=== PATIENT | female | born 1970 | race Caucasian/White ===

== ENCOUNTER 2017-10-18 18:32 | Emergency (ER) | payer OTHER ==
[2017-10-18] MEDS ORDERED: Ondansetron ODT 4 MG TAB ONE (19:17)
[2017-10-18 19:19] LABS: #Basophils 0.1 thou/uL (0.0-0.2); #Eosinphils 0.1 thou/uL (0.0-0.7); #Monocytes 0.5 thou/uL (0.11-0.59); #Neutrophils 4.9 thou/uL (1.40-6.50); %Basophils 0.7 % (0.0-1.0); %Monocytes 6.2 % (0.0-10.0); Mean Corpuscular HGB CONC 34.8 g/dL (32.0-36.0); Mean Corpuscular Hemoglobin 27.2 pg (27.0-31.0); Mean Platelet Volume 8.8 fL (7.4-10.4); Platelet Count 174 thou/uL (130-400); RBC Distribution Width 13.7 % (11.5-14.5); White Blood Cell (WBC) Count 7.5 thou/uL (4.8-10.8)
[2017-10-18 19:38] LABS: ALT (SGPT) 27 U/L (8-55); AST (SGOT) 30 U/L (5-34); Albumin 4.2 g/dL (3.5-5.0); Alkaline Phosphatase 151 U/L (40-150); Anion Gap 15 mmol/L (10-20); BUN (Urea Nitrogen) 13 mg/dL (7.0-18.7); Bilirubin, Total 1.5 mg/dL (0.2-1.2); Calc. Creatinine Clearance 0 mL/min (70-130); Calcium 9.4 mg/dL (7.8-10.44); Carbon Dioxide 24 mmol/L (22-29); Chloride 102 mmol/L (98-107); Estimated GFR-MDRD 82; Globulin 2.8 g/dL (2.4-3.5); Glucose 98 mg/dL (70-105); Lipase 24 U/L (8-78); Potassium 3.8 mmol/L (3.5-5.1); Sodium 137 mmol/L (136-145)
== END 2017-10-18 20:58 | disposition home or self-care (01) ==
LOC: SCSER 18:32
DX: R11.2 Nausea with vomiting, unspecified (principal); R19.7 Diarrhea, unspecified; K21.9 Gastro-esophageal reflux disease without esophagitis; I10 Essential (primary) hypertension
CPT/HCPCS: 80053; 83690; 85025; 96360; Q0162

== ENCOUNTER 2018-10-29 09:22 | Outpatient (CLI) | payer OTHER ==
--- NOTE | 2018-10-29 11:07 | PRG ---
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 The patient was last seen in the wound center on 11/23/2015 for a plantar ulceration of the left forefoot. The patient states that she attended a [employer] in [place], [place] and when she took off her boots, she noticed that her sock over the left foot was saturated with blood. She states that she treated the wound of the left plantar forefoot on her own with a silver dressing moistened with normal saline followed by gauze. The patient states that the wound became infected and she was seen by Dr. Flavio Eldridge. She states that she was placed on a course of p.o. antibiotics for 1 week. She states that she was also instructed to begin dressing changes of Silvadene cream. At this time, the patient was also placed into a postop shoe. The patient states that because she was unable to utilize an offloading boot, she took 10 days off from work. Over this period of time, she continued to treat the wound with Silvadene in addition to warm soaks. She states that on the October 22, she had only 1 small wound of the plantar forefoot. She states; however, that after being back at work, the wound has worsened in its appearance. The patient states that her medical leave is over. PAST MEDICAL HISTORY: 1. Gastroesophageal reflux disease. 2. Irritable bowel syndrome. 3. Hypertension. PAST SURGICAL HISTORY: 1. Appendectomy. 2. Hysterectomy. 3. Laparoscopy for endometriosis. 4. Laminectomy in October of 2008. 5. . 6. D and C. 7. Right fifth toe arthroplasty. 8. Right shoulder surgery. MEDICATIONS: 1. Estradiol. 2. Zanaflex. 3. Pantoprazole. 4. Pravastatin. 5. Cymbalta. 6. Enalapril. 7. Gabapentin p.r.n. 8. Ibuprofen p.r.n. PHYSICAL EXAMINATION: VITAL SIGNS: Temperature 98.1, pulse 94, respirations 18, and blood pressure 93/67. EXTREMITIES: A plantar ulceration of the left forefoot is present, which measures approximately 0.7 x 0.5 cm. Granulation tissue is present within the wound margins. No purulent drainage is associated with the wound. No erythema of the skin surrounding the wound is present. No maceration of the skin of the periwound is noted. A dorsalis pedis pulse and posterior tibial pulse are both palpable on the left. No significant edema of the left foot is present on exam today. ASSESSMENT AND PLAN: 1. Left plantar forefoot ulceration. Dressing changes of SilvaSorb gel sheet will be initiated today. These dressing changes are to be performed on a daily basis after cleansing and irrigation. The patient states that she will continue to perform her own dressing changes. No antibiotics will be prescribed today based upon the appearance of the wound. I will see Ms. Alcaraz again in 1 week. 2. Gastroesophageal reflux disease. 3. Irritable bowel syndrome. 4. Hypertension. Job ID: [id number]
[2018-10-29] MEDS ORDERED: Sodium Chloride 0.9% 15 ML NEB ONE (19:09)
== END 2018-10-29 09:23 | disposition home or self-care (01) ==
LOC: WCC 09:22
PROVIDERS: ATTEND Family Medicine
DX: L97.529 Non-pressure chronic ulcer of other part of left foot with unspecified severity (principal); K21.9 Gastro-esophageal reflux disease without esophagitis; K58.9 Irritable bowel syndrome, unspecified; I10 Essential (primary) hypertension
CPT/HCPCS: 97602; A4218

== ENCOUNTER 2018-11-05 13:03 | Outpatient (CLI) | payer OTHER ==
--- NOTE | 2018-11-05 13:06 | PRG ---
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 At the time of the patient's visit on 10/29/2018, Ms. Alcaraz stated that she attended a [employer] in [place], [place] and when she took off her boot, she noticed that her sock over the left foot was saturated with blood. She stated that she treated the wound of the left plantar forefoot on her own with a silver dressing moistened with normal saline followed by gauze. The patient stated that the wound became infected and she was seen by Dr. Flavio Eldridge. She stated that she was placed on a course of p.o. antibiotics for 1 week. She stated that she was also instructed to begin dressing changes of Silvadene cream. At this time, the patient was also placed into a postop shoe. The patient stated that because she was unable to utilize an offloading boot, she took 10 days off from work. Over this period of time, she continued to treat the wound with Silvadene in addition to warm soaks. She stated that on 10/22/2018, she had only one small wound of the plantar forefoot. She stated, however, that after being back at work, the wound had worsened in its appearance. After being seen in the Wound Center, the patient was placed on dressing changes of SilvaSorb gel sheet on a daily basis after cleansing and irrigation. The patient has been performing her own dressing changes. PHYSICAL EXAMINATION: VITAL SIGNS: Temperature 97.9, pulse 97, respirations 18, blood pressure 122/78. EXTREMITIES: A plantar ulceration of the left forefoot is still present, which measures approximately 0.4 x 0.4 cm. The dimensions of the wound at the time of the patient's last visit were approximately 0.7 x 0.5 cm. Granulation tissue is present within the wound margins. No purulent drainage is associated with the wound. No erythema of the skin surrounding the wound is present. No maceration of the skin of the periwound is noted. No significant edema of the left foot is present on exam today. ASSESSMENT AND PLAN: 1. Left plantar forefoot ulceration. Dressing changes of SilvaSorb gel sheet will be continued on a daily basis after cleansing and irrigation. The patient states she will continue to perform her own dressing changes. The patient has been reassured that the wound appears to be healing without complications or any signs of infection. Ms. Alcaraz will be discharged from clinic today with followup on a p.r.n. basis. The patient understands and is in agreement with the preceding treatment plan. 2. Gastroesophageal reflux disease. 3. Irritable bowel syndrome. 4. Hypertension. Job ID: [id number]
[2018-11-05] MEDS ORDERED: Sodium Chloride 0.9% 15 ML NEB ONE (18:00)
== END 2018-11-05 13:04 | disposition home or self-care (01) ==
LOC: WCC 13:03
PROVIDERS: ATTEND Family Medicine
DX: L97.529 Non-pressure chronic ulcer of other part of left foot with unspecified severity (principal); K21.9 Gastro-esophageal reflux disease without esophagitis; K58.9 Irritable bowel syndrome, unspecified; I10 Essential (primary) hypertension
CPT/HCPCS: 97602; A4218

== ENCOUNTER 2019-08-01 16:34 | Outpatient (CLI) | payer OTHER ==
--- NOTE | 2019-08-01 17:48 | RAD ---
RIGHT FOOT: 08/01/19 Three views. HISTORY: Skin infection and foot infection. Comparison made to 05/11/14 exam. Enthesophytes from the posterior calcaneus. Tarsals otherwise appear unremarkable. The metatarsals un remarkable. MTP joins unremarkable. Degenerative change at the IP joint of the great toe. There has been significant change involving the proximal phalanx of the fifth toe when compared to e prior study. There has been erosion or excision of the distal aspect of this proximal phalanx when compared to 2014. The margins appear smooth suggesting possible excision. Recommend clinical correlat ion. No other evidence of destruction or erosive change. IMPRESSION: There has been erosion or excision of the distal aspect of the proximal phalanx of the fifth toe when compared to 2014. Margins at this site are smooth suggesting excision. Recommend clinical correlatio n. There are degenerative changes at the IP joint of the great toe; however, no erosive or destructive c hange. POS: [facility]
== END 2019-08-01 16:35 | disposition home or self-care (01) ==
LOC: SCSRAD 16:34
PROVIDERS: ATTEND Family Medicine
DX: L97.512 Non-pressure chronic ulcer of other part of right foot with fat layer exposed (principal); L08.9 Local infection of the skin and subcutaneous tissue, unspecified; M19.071 Primary osteoarthritis, right ankle and foot

== ENCOUNTER 2019-08-20 11:42 | Outpatient (CLI) | payer OTHER ==
[2019-08-20] MEDS ORDERED: Magnevist 469MG/ML 20 ML VIAL ONE (12:57)
--- NOTE | 2019-08-20 15:55 | MRI ---
RIGHT FOOT MRI WITH AND WITHOUT IV CONTRAST: HISTORY: Infection, ulcer. FINDINGS: A skin marker is placed on the plantar aspect of the foot at the proximal level of the 1st metatarsop halangeal joint. There is some dorsal superficial subcutaneous nonspecific fat stranding which certa inly could represent edema and/or cellulitis. There is noted to be some plantar angulation of the di stal phalanx of the great toe relative to the proximal phalanx, but no acute abnormal marrow signal. The 1st metatarsophalangeal joint region appears unremarkable with some mild degenerative and osteoa rthrosis change. No evidence for osteomyelitis. No evidence for ligamentous or tendinous injury. N o evidence for a drainable abscess. There is some fatty change and muscle volume loss in some of the intrinsic muscles of the foot, nonspecific. IMPRESSION: No evidence for osteomyelitis. No evidence for drainable abscess. Dorsal soft tissue superficial gagnon bcutaneous swelling, nonspecific. POS: [facility]
== END 2019-08-20 11:43 | disposition home or self-care (01) ==
LOC: MRI 11:42
PROVIDERS: ATTEND Family Medicine
DX: L08.9 Local infection of the skin and subcutaneous tissue, unspecified (principal); M79.89 Other specified soft tissue disorders
CPT/HCPCS: A9579

== ENCOUNTER 2020-04-27 18:00 | Outpatient (CLI) | payer OTHER | END 2020-04-27 18:01 | disposition home or self-care (01) | LOC: SLEEPLAB 18:00 | PROVIDERS: ATTEND Family Medicine | DX: G47.33 Obstructive sleep apnea (adult) (pediatric) (principal); R53.83 Other fatigue; R06.83 Snoring; I10 Essential (primary) hypertension; G47.00 Insomnia, unspecified; E66.9 Obesity, unspecified; Z68.33 Body mass index [BMI] 33.0-33.9, adult | CPT/HCPCS: 95806 ==

== ENCOUNTER 2020-06-15 12:07 | Outpatient (CLI) | payer OTHER ==
[2020-06-16 12:26] LABS: SARS-CoV-2 MS2 Positive; SARS-CoV-2 N Gene Negative; SARS-CoV-2 S Gene Negative; SARS-CoV-2 by NAA Not Detected (NotDetected); SARS-CoV-2 orf1ab Negative
== END 2020-06-15 12:08 | disposition home or self-care (01) ==
LOC: LABBT 12:07
PROVIDERS: ATTEND Internal Medicine Gastroenterology
DX: Z01.812 Encounter for preprocedural laboratory examination (principal); Z20.828 Contact with and (suspected) exposure to other viral communicable diseases
CPT/HCPCS: 87635; U0003

== ENCOUNTER 2020-06-18 08:13 | Day surgery (SDC) | payer OTHER ==
[2020-06-17 12:02] VITALS: BMI 31.9
[2020-06-18] MEDS ORDERED: PROPOFOL 200 MG/20 ML VIAL ONE (10:35)
[2020-06-18] MEDS ORDERED: Lidocaine 1% PF 5 ML VIAL ONE (10:35)
--- NOTE | 2020-06-18 11:03 | OP ---
DATE OF PROCEDURE: 06/18/2020 PROCEDURE PERFORMED: Colonoscopy with snare polypectomy. PREPROCEDURE DIAGNOSES: 1. Colon screening. 2. Mild anemia. POSTPROCEDURE DIAGNOSES: 1. Exam to cecum; good bowel preparation. 2. Mildly redundant transverse colon. 3. 4 mm sessile polyp in the ascending colon, removed by cold snare technique. 4. Two diminutive sessile polyps, each 3 to 4 mm, in the mid transverse colon, removed by cold snare technique. 5. Three diminutive sessile polyps in the descending colon, 3 to 4 mm in diameter, removed by cold snare technique. 6. 2 to 3 mm sessile polyp in the rectum, removed by cold snare technique. 7. Small internal hemorrhoids. 8. Otherwise normal colonoscopy. PROCEDURE IN DETAIL: Written informed consent was obtained. Upon completion of the EGD, the patient was repositioned for the colonoscopy. Total intravenous anesthesia was administered by Dr. Giovanni Carvajal. A digital rectal exam was performed that was unremarkable. A Pentax video colonoscope was inserted through the anal canal and advanced under direct visualization to the cecum. Position in the cecum was verified by clear identification of the appendiceal orifice and the ileocecal valve. The quality of the bowel preparation was good. Each colon segment was examined carefully as the colonoscope was slowly withdrawn from the cecum. Vascular pattern and haustral folds appeared normal. In the mid ascending colon, a diminutive sessile polyp was identified and removed by cold snare technique. In the mid transverse colon, 2 small sessile polyps were identified and removed by cold snare technique. In the descending colon, 3 small sessile polyps with measurements as above were removed by cold snare technique. The last polyp was identified in the rectum, and was also removed by cold snare technique. All of the polyp tissue was retrieved for histology. In the rectum, retroflexed view demonstrated small internal hemorrhoids that were not actively bleeding. The exam was otherwise normal. The colon was decompressed as the colonoscope was completely removed from the patient. She was transferred to the Day Stay surgery area for postprocedure monitoring. There were no immediate complications. RECOMMENDATIONS: 1. Await pathology results. 2. Ask the patient to call me in 1 week for pathology results. 3. Would recommend repeating a colonoscopy in 3 years. 4. Resume previous diet and medications. 5. Avoid aspirin or aspirin-like medications for the next 10 days. Job ID: [id number]
--- NOTE | 2020-06-18 11:11 | OP ---
DATE OF PROCEDURE: 06/18/2020 TITLE OF PROCEDURE: EGD with biopsy. PREPROCEDURE DIAGNOSES: 1. Worsening reflux despite therapy. 2. Mild anemia. POSTPROCEDURE DIAGNOSES: 1. Exam to second portion of duodenum. 2. Small hiatal hernia, less than 1 cm in length. 3. No erosive esophagitis or esophageal ulcer seen. 4. Normal stomach. 5. Normal-appearing duodenum, biopsies obtained for histology. DESCRIPTION OF PROCEDURE: Written informed consent was obtained. The patient was brought to the endoscopy suite. Total intravenous anesthesia was administered by Dr.Jarrett Carvajal. The patient was placed in the left lateral decubitus position. A bite block was inserted into the mouth. A Pentax video diagnostic gastroscope was introduced into the oral cavity and the esophagus was carefully intubated. The gastroscope was advanced under direct visualization to the 2nd portion of the duodenum. Endoscopic findings revealed grossly normal esophageal motility with a small less than 1 cm hiatal hernia at the distal end. There was no evidence of erosive esophagitis or ulcers. Mild erythema was noted along one fold of the distal esophagus and biopsies were obtained at 37 cm for histology. The stomach was then entered and carefully examined. This included a retroflexed view of the cardia and fundus. There were no abnormalities seen in the stomach. The duodenum from the bulb to the 2nd portion was then inspected and appeared grossly normal. No vascular ectasias were identified. Random biopsies were obtained in the duodenum for histology. The stomach was decompressed as the endoscope was completely removed from the patient. She was repositioned for the colonoscopy. RECOMMENDATIONS: 1. Await pathology results. 2. Ask the patient to call me in 1 week for pathology results. 3. We will discuss possible therapeutic change of her PPI therapy from pantoprazole to esomeprazole or lansoprazole. 4. Follow up in GI clinic in 6 to 8 weeks. Job ID: [id number]
== END 2020-06-18 11:15 | disposition home or self-care (01) ==
LOC: SDC 08:13
PROVIDERS: ATTEND Internal Medicine Gastroenterology
PROC: 0DBM8ZZ Excision of Descending Colon, Via Natural or Artificial Opening Endoscopic (ICD-10-PCS; principal; 2020-06-18)
PROC: 0DB98ZX Excision of Duodenum, Via Natural or Artificial Opening Endoscopic, Diagnostic (ICD-10-PCS; principal; 2020-06-18)
PROC: 0DB38ZX Excision of Lower Esophagus, Via Natural or Artificial Opening Endoscopic, Diagnostic (ICD-10-PCS; principal; 2020-06-18)
PROC: 0DBK8ZZ Excision of Ascending Colon, Via Natural or Artificial Opening Endoscopic (ICD-10-PCS; principal; 2020-06-18)
PROC: 0DBL8ZZ Excision of Transverse Colon, Via Natural or Artificial Opening Endoscopic (ICD-10-PCS; principal; 2020-06-18)
PROC: 0DBP8ZZ Excision of Rectum, Via Natural or Artificial Opening Endoscopic (ICD-10-PCS; principal; 2020-06-18)
DX: Z12.11 Encounter for screening for malignant neoplasm of colon (principal); D12.2 Benign neoplasm of ascending colon; D12.3 Benign neoplasm of transverse colon; D12.4 Benign neoplasm of descending colon; K62.1 Rectal polyp; K64.8 Other hemorrhoids; D64.9 Anemia, unspecified; Q43.8 Other specified congenital malformations of intestine; K21.9 Gastro-esophageal reflux disease without esophagitis; K44.9 Diaphragmatic hernia without obstruction or gangrene; F41.9 Anxiety disorder, unspecified; F32.9 Major depressive disorder, single episode, unspecified; M19.90 Unspecified osteoarthritis, unspecified site; I10 Essential (primary) hypertension; E78.00 Pure hypercholesterolemia, unspecified; G47.30 Sleep apnea, unspecified; Z79.899 Other long term (current) drug therapy; Z88.8 Allergy status to other drugs, medicaments and biological substances
CPT/HCPCS: 88305; J2704

== ENCOUNTER 2020-07-15 07:45 | Outpatient (CLI) | payer OTHER ==
--- NOTE | 2020-07-15 08:54 | RAD ---
XR Lumbar Spine 2 Or 3 View History: Low back pain Comparison: None. Findings: 5 nonrib-bearing lumbar type vertebra. Posterior spinal fusion hardware with transpedicular screws and interconnecting rods at L5/S1 discectomy change. No periarticular lucency. No acute fracture or malalignment. Asymmetric right facet joint narrowing with small erosions. Phleboliths in the pelvis. Low-grade L2/L3 degenerative disc space height loss with small disc osteophyte complex. Impression: Low-grade degenerative changes. Intact fusion hardware lumbosacral junction.
--- NOTE | 2020-07-15 09:13 | RAD ---
XR Sacroiliac Joints >=3 View History: Low back pain Comparison: None. Findings: Subtle cortical lucency the lateral aspect right sacrum at S1. Asymmetric right SI joint er osions. Posterior spinal fusion hardware with transpedicular screws and interconnecting rods and discectomy c hange at L5/S1. Numerous phleboliths in the pelvis. Impression: Abnormal cortical lucency of the right sacrum may reflect a healing fracture less likely septic arthritis from the right SI joint. MRI recommended if clinically warranted.
== END 2020-07-15 07:46 | disposition home or self-care (01) ==
LOC: SCSRAD 07:45
PROVIDERS: ATTEND Internal Medicine Rheumatology
DX: M54.5 Low back pain (principal); M46.1 Sacroiliitis, not elsewhere classified; M47.816 Spondylosis without myelopathy or radiculopathy, lumbar region; R93.7 Abnormal findings on diagnostic imaging of other parts of musculoskeletal system; Z98.1 Arthrodesis status
CPT/HCPCS: 72100; 72202

== ENCOUNTER 2020-07-16 14:08 | Outpatient (CLI) | payer OTHER ==
--- NOTE | 2020-07-16 15:02 | RAD ---
SI JOINT THREE VIEW: 07/16/20 HISTORY: Sacroiliitis. COMPARISON: Radiograph prior day. FINDINGS: The resolution on today's examination is less clear than the prior exam. The right sided cortical breakthrough is not as well appreciated. IMPRESSION: Decreased clarity and resolution of today's exam relative to the prior exam partially due to increase d field of view on today's images. The right sided sacral cortical lucency is not as well appreciate d. POS: HOME
== END 2020-07-16 14:09 | disposition home or self-care (01) ==
LOC: RAD 14:08
PROVIDERS: ATTEND Internal Medicine Rheumatology
DX: M46.1 Sacroiliitis, not elsewhere classified (principal)
CPT/HCPCS: 72202

== ENCOUNTER 2020-07-29 15:23 | Outpatient (CLI) | payer OTHER ==
[~2020-07-29 15:23] MED LIST: Magnevist 469MG/ML 20 ML VIAL ONE
--- NOTE | 2020-07-30 08:42 | MRI ---
EXAM: MRI Pelvis W WO Con DATE: 07/29/2020 3:50 PM INDICATION: Suspicion for a right sacral fracture versus sacroiliitis on the right on the comparison radiograph from [facility] [place] dated July 15, 2020. Patient also has a history of trauma where she fell out of bed and is now having sacral back pain. COMPARISON: Right sacroiliac radiograph dated July 15, 2020 and is SI joint evaluation dated 2020 FINDING: Multiplanar multisequence MR images were obtained of the sacroiliac joints with and without contrast utilizing 18 cc of MultiHance. On the fluid sensitive sequences, there is no evidence of SI joint effusion or acute fracture. There is susceptibility artifact from bilateral pedicular screws at L5-S1 posterior interbody fusion. No free fluid is identified within the pelvis. The reproductive structures appear to be surgically absen t. The bladder is partially decompressed. No enlarged lymph nodes are evident. In regards to the SI joints, there are some mild marginal osteophytes indicative of mild degenerative changes. No overt pe riarticular erosions are evident. The visualized musculature of the gluteal region reveals no definite signal abnormality to suggest muscular contusion or muscular strain. IMPRESSION: 1. The abnormalities seen involving the right SI joint on the comparison radiograph dated July 15, 2020 from [facility] in [place], were likely artifactual. There is mild degenerative change of both SI joints. No visible sacral fracture or signal abnormaliti es suggesting sacroiliitis is evident. 2. Post operative change consistent with a L5-S1 posterior interbody fusion.
== END 2020-07-29 15:24 | disposition home or self-care (01) ==
LOC: BICMRI 15:23
PROVIDERS: ATTEND Internal Medicine Rheumatology
DX: M54.5 Low back pain (principal); M46.1 Sacroiliitis, not elsewhere classified; R93.89 Abnormal findings on diagnostic imaging of other specified body structures; M47.818 Spondylosis without myelopathy or radiculopathy, sacral and sacrococcygeal region; Z98.890 Other specified postprocedural states
CPT/HCPCS: 72197; 82565; A9579

== ENCOUNTER 2020-09-02 10:02 | Outpatient (CLI) | payer OTHER ==
--- NOTE | 2020-09-02 10:55 | RAD ---
RIGHT FOOT 3 VIEWS: Date: 09/02/2020 HISTORY: Follow-up from injury. History of fifth metatarsal ulceration. COMPARISON: 08/01/2019 exam. FINDINGS: Changes of the foot are stable as compared to the prior exam. There has been what appears to be a par tial resection of the distal aspect of the proximal phalanx of the little toe. I do not see any signs of osteomyelitis. Mild arthritic changes of the first metatarsophalangeal joint are seen. Prominent calcaneal spur at the Achilles tendon insertion. IMPRESSION: Stable exam. POS: [facility]
[2020-09-02 14:57] LABS: #Basophils 0.1 thou/uL (0.0-0.2); #Eosinphils 0.1 thou/uL (0.0-0.7); #Lymphocytes 3.7 thou/uL (1.20-3.40); #Monocytes 0.7 thou/uL (0.11-0.59); #Neutrophils 8.2 thou/uL (1.40-6.50); %Basophils 0.5 % (0.0-1.0); %Eosinophils 0.9 % (0.0-10.0); %Lymphocytes 28.8 % (21.0-51.0); %Monocytes 5.6 % (0.0-10.0); %Neutrophils 64.1 % (42.0-75.0); Hemoglobin 11.9 g/dL (12.0-16.0); Mean Corpuscular HGB CONC 33.5 g/dL (32.0-36.0); Mean Corpuscular Hemoglobin 27.8 pg (27.0-31.0); Mean Platelet Volume 8.8 fL (7.4-10.4); Platelet Count 211 thou/uL (130-400); RBC Distribution Width 15.3 % (11.5-14.5); Red Blood Cell (RBC) Count 4.29 mill/uL (4.20-5.40); White Blood Cell (WBC) Count 12.7 thou/uL (4.8-10.8)
[2020-09-02 15:40] LABS: Bilirubin Negative (Negative); Blood, Urine Negative (Negative); Glucose, Urine (Dipstick) Negative (Negative); Ketone, Urine Negative (Negative); Leukocyte Negative (Negative); Nitrite Negative (Negative); Protein, Urine (Dipstick) Negative (Neg-Trace); Urobilinogen 0.2 mg/dL (Less than 2)
[2020-09-02 15:44] LABS: Clarity Clear (Clear)
[2020-09-02 15:45] LABS: Specific Gravity, Urine 1.024 (1.002-1.036)
[2020-09-02 15:46] LABS: Bacteria/HPF None Seen HPF (None Seen); RBC/HPF None Seen HPF (0-3); Squamous Epithelial 0-3 HPF (0-3); WBC/HPF None Seen HPF (0-3)
[2020-09-02 17:43] LABS: ALT (SGPT) 19 U/L (8-55); AST (SGOT) 17 U/L (5-34); Albumin 4.3 g/dL (3.5-5.0); Alkaline Phosphatase 189 U/L (40-110); Anion Gap 14 mmol/L (10-20); BUN (Urea Nitrogen) 19 mg/dL (9.8-20.1); Bilirubin, Total 0.6 mg/dL (0.2-1.2); CRP (Inflammatory) 6.41 mg/dL (= or < 0.5); Calc. Creatinine Clearance 0 mL/min (70-130); Calcium 9.3 mg/dL (7.8-10.44); Carbon Dioxide 28 mmol/L (22-29); Cardiac Risk 3.9 (Less than 4.5); Chloride 101 mmol/L (98-107); Cholesterol 157 mg/dl (< 200 Desired); Globulin 2.5 g/dL (2.4-3.5); Glucose 117 mg/dL (70-105); HDL Cholesterol 40 mg/dL (>60 Neg Risk); LDL Cholesterol, Calculated 80 mg/dL; Potassium 4.3 mmol/L (3.5-5.1); Protein, Total 6.8 g/dL (6.0-8.3); Sodium 139 mmol/L (136-145); Triglycerides 186 mg/dL (Less than 150)
[2020-09-02 17:54] LABS: Free T4 (Free Thyroxine) 1.01 ng/dL (0.70-1.48); Thyroid Stimulating Hormone 2.8774 uIU/mL (0.35-4.94)
[2020-09-02 17:55] LABS: Vitamin D, 25 Hydroxy 43.8 ng/ml (> 30.0)
[2020-09-04 15:56] LABS: ANA Symphony (Qualitative) Negative (Negative); ANA Symphony (Quantitative) 0.2 Ratio (< 0.7 Negative); dsDNA IgG Antibody Less than 0.5 IU/mL (<10 Negative)
== END 2020-09-02 10:03 | disposition home or self-care (01) ==
LOC: SCSRAD 10:02
PROVIDERS: ATTEND Family Medicine
DX: Z00.00 Encounter for general adult medical examination without abnormal findings (principal); T24.331A Burn of third degree of right lower leg, initial encounter; E55.9 Vitamin D deficiency, unspecified; E03.9 Hypothyroidism, unspecified; L65.9 Nonscarring hair loss, unspecified
CPT/HCPCS: 36415; 80053; 80061; 81001; 82306; 84439; 84443; 84481; 85025; 85652; 86038; 86140; 86225

== ENCOUNTER 2020-09-16 11:13 | Inpatient (IN) | payer OTHER ==
[2020-09-16 12:13] LABS: #Basophils 0.1 thou/uL (0.0-0.2); #Eosinphils 0.2 thou/uL (0.0-0.7); #Lymphocytes 4.5 thou/uL (1.20-3.40); #Monocytes 0.9 thou/uL (0.11-0.59); #Neutrophils 10.6 thou/uL (1.40-6.50); %Basophils 0.5 % (0.0-1.0); %Eosinophils 1.1 % (0.0-10.0); %Lymphocytes 27.6 % (21.0-51.0); %Monocytes 5.4 % (0.0-10.0); %Neutrophils 65.4 % (42.0-75.0); Hemoglobin 13.3 g/dL (12.0-16.0); Mean Corpuscular HGB CONC 35.6 g/dL (32.0-36.0); Mean Corpuscular Hemoglobin 27.6 pg (27.0-31.0); Mean Corpuscular Volume 77.5 fL (78.0-98.0); Mean Platelet Volume 8.3 fL (7.4-10.4); Platelet Count 325 thou/uL (130-400); RBC Distribution Width 14.9 % (11.5-14.5); Red Blood Cell (RBC) Count 4.83 mill/uL (4.20-5.40); White Blood Cell (WBC) Count 16.3 thou/uL (4.8-10.8)
[2020-09-16 12:30] LABS: ALT (SGPT) 13 U/L (8-55); AST (SGOT) 12 U/L (5-34); Albumin 4.4 g/dL (3.5-5.0); Alkaline Phosphatase 193 U/L (40-110); Anion Gap 20 mmol/L (10-20); BUN (Urea Nitrogen) 107 mg/dL (9.8-20.1); Bilirubin, Total 0.6 mg/dL (0.2-1.2); CK (CPK) 46 U/L (29-168); Calc. Creatinine Clearance 0 mL/min (70-130); Calcium 9.6 mg/dL (7.8-10.44); Carbon Dioxide 17 mmol/L (22-29); Chloride 97 mmol/L (98-107); Globulin 3.6 g/dL (2.4-3.5); Glucose 119 mg/dL (70-105); Lipase 122 U/L (8-78); Potassium 5.1 mmol/L (3.5-5.1); Sodium 129 mmol/L (136-145)
[2020-09-16] MEDS ORDERED: Cefepime 2 GM VIAL ONE (12:42)
[2020-09-16] MEDS ORDERED: Vancomycin 1 GM/200 ML BAG ONE (12:42)
[2020-09-16] MEDS ORDERED: Dextrose 5% in Water 1,000 ML IV SCH (13:15)
[2020-09-16 13:17] LABS: Bilirubin Negative (Negative); Blood, Urine Negative (Negative); Clarity Clear (Clear); Glucose, Urine (Dipstick) 30 mg/dL (Negative); Ketone, Urine Negative (Negative); Leukocyte Negative Leu/uL (Negative); Nitrite Negative (Negative); Protein, Urine (Dipstick) 10 mg/dL (Neg-Trace); Specific Gravity, Urine 1.013 (1.002-1.036); Urobilinogen Normal mg/dL (Less than 2)
[2020-09-16] MEDS ORDERED: Calcium Carbonate 500 MG ChewTAB PO PRN (15:13)
[2020-09-16] MEDS ORDERED: Acetaminophen 325 MG TAB PO PRN (15:13)
[2020-09-16] MEDS ORDERED: Senokot S 8.6-50 MG TAB PO PRN (15:13)
[2020-09-16 15:17] LABS: Lactic Acid 1.7 mmol/L (0.5-2.2)
[2020-09-16] MEDS ORDERED: traMADol HCl 50 MG TAB PO PRN (15:19)
[2020-09-16 15:28] LABS: CK (CPK) 42 U/L (29-168); Phosphorus 5.8 mg/dL (2.3-4.7)
[2020-09-16 17:33] VITALS: BMI 32.0
[2020-09-16] MEDS: Dextrose 5 % And 0.9 % NaCl 1,000 ML IV SCH (18:41)
[2020-09-16] MEDS: Heparin 5,000 UNITS/ML VIAL SC SCH (20:22)
[2020-09-16] MEDS: Sodium Bicarbonate Tab 325 MG TAB PO SCH (20:22)
[2020-09-16 20:43] LABS: Creatinine, Urine 34.07 mg/dL (47-110); Protein, Urine Random Quant Less than 10 mg/dL (1-14)
[2020-09-17 00:38] LABS: SARS-CoV-2 PCR NAA for Saliva Not Detected (NotDetected)
[2020-09-17] MEDS: Dextrose 5 % And 0.9 % NaCl 1,000 ML IV SCH ×3 (03:11→16:12)
[2020-09-17 04:40] LABS: Hemoglobin 10.7 g/dL (12.0-16.0); Mean Corpuscular HGB CONC 36.1 g/dL (32.0-36.0); Mean Corpuscular Hemoglobin 28.3 pg (27.0-31.0); Mean Corpuscular Volume 78.5 fL (78.0-98.0); RBC Distribution Width 14.6 % (11.5-14.5); Red Blood Cell (RBC) Count 3.78 mill/uL (4.20-5.40); White Blood Cell (WBC) Count 9.9 thou/uL (4.8-10.8)
[2020-09-17 04:47] LABS: Anion Gap 16 mmol/L (10-20); BUN (Urea Nitrogen) 74 mg/dL (9.8-20.1); Calc. Creatinine Clearance 22 mL/min (70-130); Calcium 8.5 mg/dL (7.8-10.44); Carbon Dioxide 16 mmol/L (22-29); Chloride 107 mmol/L (98-107); Glucose 116 mg/dL (70-105); Potassium 4.4 mmol/L (3.5-5.1); Sodium 135 mmol/L (136-145)
[2020-09-17 05:12] LABS: #Eosinphils 0.2 thou/uL (0.0-0.7); #Lymphocytes 3.9 thou/uL (1.20-3.40); #Monocytes 0.6 thou/uL (0.11-0.59); #Neutrophils 5.2 thou/uL (1.40-6.50); %Basophils 0.4 % (0.0-1.0); %Eosinophils 1.5 % (0.0-10.0); %Monocytes 6.2 % (0.0-10.0); %Neutrophils 52.9 % (42.0-75.0); Anisocytosis SLIGHT = 6-15 cells (100X) (0-5/hpf); MDiff Complete? YES; Mean Platelet Volume 8.4 fL (7.4-10.4); Platelet Count 219 thou/uL (130-400); Platelet Morphology Comment Appears Adequate
[2020-09-17] MEDS: Sodium Bicarbonate Tab 325 MG TAB PO SCH ×3 (09:13→21:29)
[2020-09-17] MEDS: Heparin 5,000 UNITS/ML VIAL SC SCH ×2 (09:14→21:29)
[2020-09-17] MEDS ORDERED: traMADol HCl 50 MG TAB PO PRN (09:51)
[2020-09-17] MEDS ORDERED: Lorazepam 0.5 MG TAB PO PRN (12:01)
[2020-09-17] MEDS ORDERED: tiZANidine HCl 4 MG TAB PO PRN (12:02)
[2020-09-17] MEDS ORDERED: Cefepime 1 GM in Sodium Chloride 0.9% 100 ML IVPB SCH (13:00)
[2020-09-17 13:20] LABS: Vancomycin, Random 8.6 ug/mL (See Comment)
[2020-09-17] MEDS ORDERED: Vancomycin 1 GM in Premix Bag 1 BAG IVPB SCH ×2 (14:00→14:15)
[2020-09-17] MEDS: AMOXicillin 250 MG CAP PO SCH (21:29)
[2020-09-18] MEDS: Dextrose 5 % And 0.9 % NaCl 1,000 ML IV SCH ×3 (00:03→17:43)
[2020-09-18 04:38] LABS: #Basophils 0.1 thou/uL (0.0-0.2); #Eosinphils 0.2 thou/uL (0.0-0.7); #Lymphocytes 2.7 thou/uL (1.20-3.40); #Monocytes 0.5 thou/uL (0.11-0.59); #Neutrophils 4.9 thou/uL (1.40-6.50); %Basophils 0.9 % (0.0-1.0); %Lymphocytes 32.5 % (21.0-51.0); %Monocytes 6.3 % (0.0-10.0); %Neutrophils 58.4 % (42.0-75.0); Mean Corpuscular HGB CONC 34.7 g/dL (32.0-36.0); Mean Corpuscular Hemoglobin 27.4 pg (27.0-31.0); Mean Platelet Volume 8.3 fL (7.4-10.4); Platelet Count 171 thou/uL (130-400); RBC Distribution Width 14.5 % (11.5-14.5); Red Blood Cell (RBC) Count 3.65 mill/uL (4.20-5.40); White Blood Cell (WBC) Count 8.4 thou/uL (4.8-10.8)
[2020-09-18 04:59] LABS: Anion Gap 12 mmol/L (10-20); BUN (Urea Nitrogen) 49 mg/dL (9.8-20.1); Calc. Creatinine Clearance 35 mL/min (70-130); Calcium 8.8 mg/dL (7.8-10.44); Carbon Dioxide 25 mmol/L (22-29); Chloride 108 mmol/L (98-107); Glucose 112 mg/dL (70-105); Potassium 4.7 mmol/L (3.5-5.1); Sodium 140 mmol/L (136-145)
[2020-09-18 05:01] LABS: Iron 142 ug/dL (50-170); Iron Binding Capacity, Total 294 mcg/dL (265-497)
[2020-09-18 05:07] LABS: Iron 143 ug/dL (50-170); Iron Binding Capacity, Total 299 mcg/dL (265-497); Phosphorus 3.7 mg/dL (2.3-4.7)
[2020-09-18] MEDS: Sodium Bicarbonate Tab 325 MG TAB PO SCH ×3 (08:01→20:54)
[2020-09-18] MEDS: Heparin 5,000 UNITS/ML VIAL SC SCH ×2 (08:01→20:54)
[2020-09-18] MEDS: AMOXicillin 250 MG CAP PO SCH ×2 (08:01→20:54)
[2020-09-18] MEDS ORDERED: Estradiol 1 MG TAB PO SCH (16:15)
[2020-09-19] MEDS: Dextrose 5 % And 0.9 % NaCl 1,000 ML IV SCH ×4 (02:12→23:39)
[2020-09-19 05:17] LABS: #Basophils 0.1 thou/uL (0.0-0.2); #Eosinphils 0.2 thou/uL (0.0-0.7); #Monocytes 0.5 thou/uL (0.11-0.59); #Neutrophils 3.9 thou/uL (1.40-6.50); %Basophils 0.7 % (0.0-1.0); %Eosinophils 2.5 % (0.0-10.0); %Lymphocytes 39.3 % (21.0-51.0); %Monocytes 6.1 % (0.0-10.0); %Neutrophils 51.4 % (42.0-75.0); Hemoglobin 9.1 g/dL (12.0-16.0); Mean Corpuscular Hemoglobin 26.8 pg (27.0-31.0); Mean Platelet Volume 8.8 fL (7.4-10.4); Platelet Count 141 thou/uL (130-400); RBC Distribution Width 14.2 % (11.5-14.5); Red Blood Cell (RBC) Count 3.37 mill/uL (4.20-5.40); White Blood Cell (WBC) Count 7.5 thou/uL (4.8-10.8)
[2020-09-19 05:38] LABS: Anion Gap 15 mmol/L (10-20); BUN (Urea Nitrogen) 35 mg/dL (9.8-20.1); Calc. Creatinine Clearance 49 mL/min (70-130); Calcium 8.3 mg/dL (7.8-10.44); Carbon Dioxide 17 mmol/L (22-29); Chloride 111 mmol/L (98-107); Glucose 104 mg/dL (70-105); Potassium 4.2 mmol/L (3.5-5.1); Sodium 139 mmol/L (136-145)
[2020-09-19] MEDS: AMOXicillin 250 MG CAP PO SCH ×2 (07:44→20:29)
[2020-09-19] MEDS: Heparin 5,000 UNITS/ML VIAL SC SCH ×2 (07:44→20:29)
[2020-09-19] MEDS: Sodium Bicarbonate Tab 325 MG TAB PO SCH ×3 (07:44→20:29)
[2020-09-19] MEDS ORDERED: Acetaminophen/Codeine 30-300mg Tablet PO PRN (09:07)
[2020-09-19] MEDS ORDERED: Lidocaine 5% Patch TD SCH (09:15)
[2020-09-19] MEDS ORDERED: DULoxetine 60 MG CAP PO SCH (09:15)
[2020-09-19] MEDS ORDERED: DULoxetine 30 MG CAP PO SCH (11:00)
[2020-09-19] MEDS: Lidocaine 5% Patch TD SCH (11:41)
[2020-09-19] MEDS ORDERED: Estradiol 1 MG TAB PO SCH (21:00)
[2020-09-19] MEDS ORDERED: Transdermal Patch Removal TOP SCH (21:00)
[2020-09-20 04:39] LABS: #Eosinphils 0.2 thou/uL (0.0-0.7); #Lymphocytes 2.4 thou/uL (1.20-3.40); #Monocytes 0.3 thou/uL (0.11-0.59); #Neutrophils 3.6 thou/uL (1.40-6.50); %Basophils 0.4 % (0.0-1.0); %Eosinophils 2.8 % (0.0-10.0); %Lymphocytes 36.2 % (21.0-51.0); %Monocytes 5.3 % (0.0-10.0); %Neutrophils 55.4 % (42.0-75.0); Hemoglobin 8.9 g/dL (12.0-16.0); Mean Corpuscular HGB CONC 34.2 g/dL (32.0-36.0); Platelet Count 124 thou/uL (130-400); RBC Distribution Width 14.1 % (11.5-14.5); Red Blood Cell (RBC) Count 3.31 mill/uL (4.20-5.40); White Blood Cell (WBC) Count 6.5 thou/uL (4.8-10.8)
[2020-09-20 05:01] LABS: Anion Gap 11 mmol/L (10-20); BUN (Urea Nitrogen) 22 mg/dL (9.8-20.1); Calc. Creatinine Clearance 73 mL/min (70-130); Calcium 8.2 mg/dL (7.8-10.44); Carbon Dioxide 21 mmol/L (22-29); Chloride 110 mmol/L (98-107); Glucose 110 mg/dL (70-105); Sodium 138 mmol/L (136-145)
[2020-09-20 07:07] VITALS: BP 137/71; TEMP 97.4
[2020-09-20] MEDS: Sodium Bicarbonate Tab 325 MG TAB PO SCH (07:33)
[2020-09-20] MEDS: Dextrose 5 % And 0.9 % NaCl 1,000 ML IV SCH (07:34)
[2020-09-20] MEDS: Lidocaine 5% Patch TD SCH (07:34)
[2020-09-20] MEDS ORDERED: DULoxetine 30 MG CAP PO SCH (09:00)
[2020-09-20] MEDS ORDERED: DULoxetine 60 MG CAP PO SCH (09:00)
[2020-09-20] MEDS: Heparin 5,000 UNITS/ML VIAL SC SCH (09:23)
== END 2020-09-20 11:00 | disposition home or self-care (01) | DRG 682 ==
LOC: ERS 11:13 → 2NO 14:07
PROVIDERS: ADMIT Internal Medicine; ATTEND Internal Medicine
PROC: 5A09357 Assistance with Respiratory Ventilation, Less than 24 Consecutive Hours, Continuous Positive Airway Pressure (ICD-10-PCS; principal; 2020-09-16)
DX: N17.9 Acute kidney failure, unspecified (principal); A41.9 Sepsis, unspecified organism; R65.20 Severe sepsis without septic shock; E87.1 Hypo-osmolality and hyponatremia; E87.2 Acidosis; L97.819 Non-pressure chronic ulcer of other part of right lower leg with unspecified severity; L03.116 Cellulitis of left lower limb; Z20.822 Contact with and (suspected) exposure to COVID-19; E83.39 Other disorders of phosphorus metabolism; N18.2 Chronic kidney disease, stage 2 (mild); M79.7 Fibromyalgia; K21.9 Gastro-esophageal reflux disease without esophagitis; F41.9 Anxiety disorder, unspecified; F32.9 Major depressive disorder, single episode, unspecified; G47.33 Obstructive sleep apnea (adult) (pediatric); E78.5 Hyperlipidemia, unspecified; D64.9 Anemia, unspecified; E03.9 Hypothyroidism, unspecified; R42 Dizziness and giddiness; Z82.61 Family history of arthritis; Z90.49 Acquired absence of other specified parts of digestive tract; Z90.710 Acquired absence of both cervix and uterus; Z82.5 Family history of asthma and other chronic lower respiratory diseases; Z83.49 Family history of other endocrine, nutritional and metabolic diseases; Z82.49 Family history of ischemic heart disease and other diseases of the circulatory system
CPT/HCPCS: 36415; 71045; 71046; 76770; 80048; 80053; 80061; 80202; 81003; 82533; 82550; 82570; 82728; 83540; 83550; 83605; 83690; 83735; 83880; 84100; 84156; 84300; 84443; 84484; 85025; 85379; 85652; 86140; 87040; 87635; 93005; 93306; 93880; 93923; 94760; 96365; 96375; J0692; J1644; J3370; J3490; U0003; U0005

== ENCOUNTER 2021-02-26 13:34 | Outpatient (CLI) | payer OTHER | END 2021-02-26 13:35 | disposition home or self-care (01) | LOC: BICMAMMO 13:34 | PROVIDERS: ATTEND Family Medicine | DX: Z12.31 Encounter for screening mammogram for malignant neoplasm of breast (principal); Z80.3 Family history of malignant neoplasm of breast | CPT/HCPCS: 77063; 77067 ==

== ENCOUNTER 2021-04-16 14:43 | Outpatient (CLI) | payer OTHER ==
[2021-04-16 15:53] LABS: #Eosinphils 0.1 10x3/uL (0.0-0.5); #Monocytes 0.5 10x3/uL (0.0-1.1); %Basophils 0.4 % (0.0-2.0); %Eosinophils 1.3 % (0.0-6.0); %Lymphocytes 32.5 % (18.0-47.0); %Monocytes 4.7 % (0.0-10.0); %Neutrophils 59.9 % (40.0-75.0); Hemoglobin 12.7 g/dL (12.0-15.5); Mean Corpuscular HGB CONC 32.7 g/dL (32.0-36.0); Mean Corpuscular Hemoglobin 26.5 pg (27.0-33.0); Mean Corpuscular Volume 80.8 fl (81.6-98.3); Mean Platelet Volume 10.3 fl (7.4-10.4); Platelet Count 211 10x3/uL (150-450); RBC Distribution Width 16.2 % (11.5-14.5)
[2021-04-16 16:27] LABS: ALT (SGPT) 25 U/L (8-55); AST (SGOT) 26 U/L (5-34); Albumin 4.2 g/dL (3.5-5.0); Alkaline Phosphatase 154 U/L (40-110); Anion Gap 17 mmol/L (10-20); BUN (Urea Nitrogen) 14 mg/dL (9.8-20.1); Bilirubin, Total 0.7 mg/dL (0.2-1.2); Calc. Creatinine Clearance 0 mL/min (70-130); Calcium 9.8 mg/dL (7.8-10.44); Carbon Dioxide 23 mmol/L (22-29); Chloride 105 mmol/L (98-107); Globulin 2.5 g/dL (2.4-3.5); Glucose 97 mg/dL (70-105); Potassium 4.1 mmol/L (3.5-5.1); Protein, Total 6.7 g/dL (6.0-8.3); Sodium 141 mmol/L (136-145)
[2021-04-17 16:49] LABS: SARS-CoV-2 PCR by NAA Not Detected (NotDetected)
== END 2021-04-16 14:44 | disposition home or self-care (01) ==
LOC: LABBT 14:43
PROVIDERS: ATTEND Internal Medicine Cardiovascular Disease
DX: Z01.812 Encounter for preprocedural laboratory examination (principal); Z20.822 Contact with and (suspected) exposure to COVID-19
CPT/HCPCS: 80053; 85025; U0003; U0005

== ENCOUNTER 2021-04-21 06:18 | Day surgery (SDC) | payer OTHER ==
[2021-04-20 11:00] VITALS: BMI 31.9
[2021-04-21] MEDS ORDERED: Lidocaine 1% (PF) 30 ML VIAL ONE (08:04)
[2021-04-21 08:20] LABS: Cardiac Risk 4.5 (Less than 4.5)
[2021-04-21] MEDS ORDERED: Midazolam HCl 2 mg/2 ml Vial ONE (08:27)
[2021-04-21] MEDS ORDERED: Fentanyl 100 MCG/2 ML VIAL ONE (08:27)
[2021-04-21] MEDS ORDERED: Heparin 10,000 UNITS/ 10 ML VIAL ONE (08:27)
[2021-04-21] MEDS ORDERED: Iopamidol 370 76% 100 ML VIAL ONE (08:46)
== END 2021-04-21 12:28 | disposition home or self-care (01) ==
LOC: CCL 06:18
PROVIDERS: ATTEND Internal Medicine Cardiovascular Disease
PROC: B41G1ZZ Fluoroscopy of Left Lower Extremity Arteries using Low Osmolar Contrast (ICD-10-PCS; principal; 2021-04-21)
PROC: B41F1ZZ Fluoroscopy of Right Lower Extremity Arteries using Low Osmolar Contrast (ICD-10-PCS; principal; 2021-04-21)
DX: L97.919 Non-pressure chronic ulcer of unspecified part of right lower leg with unspecified severity (principal); Z79.2 Long term (current) use of antibiotics; Z79.82 Long term (current) use of aspirin; Z79.899 Other long term (current) drug therapy; Z88.8 Allergy status to other drugs, medicaments and biological substances
CPT/HCPCS: 36246; 75716; 75736; 80061; 99152; 99153; J1644; J2001; J2250; J3010; Q9967

== ENCOUNTER 2021-06-29 07:39 | Outpatient (CLI) | payer OTHER ==
[2021-06-29 08:14] LABS: Estimated GFR-MDRD - POC Greater than 90
== END 2021-06-29 07:40 | disposition home or self-care (01) ==
LOC: SCSMRI 07:39
PROVIDERS: ATTEND Orthopaedic Surgery
DX: L97.515 Non-pressure chronic ulcer of other part of right foot with muscle involvement without evidence of necrosis (principal); S91.301A Unspecified open wound, right foot, initial encounter; M79.671 Pain in right foot
CPT/HCPCS: 82565

== ENCOUNTER 2023-06-06 15:13 | Outpatient (CLI) | payer BC | END 2023-06-06 15:14 | disposition home or self-care (01) | LOC: BICMAMMO 15:13 | PROVIDERS: ATTEND Family Medicine | DX: Z12.31 Encounter for screening mammogram for malignant neoplasm of breast (principal); N64.89 Other specified disorders of breast; Z80.3 Family history of malignant neoplasm of breast | CPT/HCPCS: 77063; 77067 ==

== ENCOUNTER 2023-06-14 09:16 | Outpatient (CLI) | payer BC | END 2023-06-14 09:17 | disposition home or self-care (01) | LOC: BICMAMMO 09:16 | PROVIDERS: ATTEND Family Medicine | DX: N64.89 Other specified disorders of breast (principal); N63.11 Unspecified lump in the right breast, upper outer quadrant | CPT/HCPCS: G0279 ==

== ENCOUNTER → 2023-11-20 | Day surgery (SDC) | payer BC ==
[~2023-11-20] MED LIST changes: +Gadobenate Dimeglumine 2 ML, Sodium Chloride 0.9% 250 ML 10 ML, Iopamidol 8 ML, Lidocai... FS SCH; +Sodium Bicarbonate 2.5 MEQ/5 ML SDV ONE
== END ==
LOC: RAD 09:42
PROVIDERS: ATTEND Orthopaedic Surgery
PROC: BP09YZZ Plain Radiography of Left Shoulder using Other Contrast (ICD-10-PCS; principal; 2023-11-20)
DX: S43.432S Superior glenoid labrum lesion of left shoulder, sequela (principal); W19.XXXS Unspecified fall, sequela
CPT/HCPCS: 23350; 77002; A9577; A9579; J0171; J7050; Q9967

== ENCOUNTER 2023-11-30 15:52 | Outpatient (CLI) | payer BC ==
[2023-11-30 16:40] LABS: #Basophils 0.05 10x3/uL (0.0-0.2); #Eosinphils 0.19 10x3/uL (0.0-0.5); #Monocytes 0.47 10x3/uL (0.0-1.1); #Neutrophils 4.86 10x3/uL (1.5-8.4); %Basophils 0.6 % (0.0-2.0); %Eosinophils 2.4 % (0.0-6.0); %Lymphocytes 29.3 % (18.0-47.0); %Monocytes 5.9 % (0.0-10.0); %Neutrophils 60.7 % (40.0-75.0); Hematocrit 35.8 % (34.9-44.5); Hemoglobin 12.5 g/dL (12.0-15.5); Mean Corpuscular HGB CONC 34.9 g/dL (32.0-36.0); Mean Corpuscular Hemoglobin 27.4 pg (27.0-33.0); Mean Corpuscular Volume 78.3 fL (81.6-98.3); Mean Platelet Volume 9.8 fL (7.4-10.4); Platelet Count 192 10x3/uL (150-450); RBC Distribution Width 15.8 % (11.5-14.5); Red Blood Cell (RBC) Count 4.57 10x6/uL (3.90-5.03)
[2023-11-30 16:51] LABS: Anion Gap 15 mmol/L (10-20); BUN (Urea Nitrogen) 15 mg/dL (9.8-20.1); Calc. Creatinine Clearance 0 mL/min (70-130); Calcium 9.2 mg/dL (7.8-10.44); Carbon Dioxide 22 mmol/L (22-29); Chloride 104 mmol/L (98-107); Estimated GFR 99; Glucose 107 mg/dL (70-105); Sodium 137 mmol/L (136-145)
== END 2023-11-30 15:53 | disposition home or self-care (01) ==
LOC: LABBT 15:52
PROVIDERS: ATTEND Orthopaedic Surgery
DX: Z01.818 Encounter for other preprocedural examination (principal); S43.402A Unspecified sprain of left shoulder joint, initial encounter
CPT/HCPCS: 80048; 85025; 93005; 93010

== ENCOUNTER 2023-12-06 07:36 | Day surgery (SDC) | payer BC ==
[2023-11-30 16:12] VITALS: BMI 36.3
[2023-12-06] MEDS ORDERED: Midazolam HCl 2 mg/2 ml Vial ONE (08:00)
[2023-12-06] MEDS ORDERED: Ropivacaine 0.2% HCl/PF 20 ML ONE (08:00)
[2023-12-06] MEDS ORDERED: fentaNYL 50 mcg/mL 1 mL Vial ONE ×2 (08:00→12:38)
[2023-12-06] MEDS ORDERED: Ropivacaine 0.5% HCl/PF (150 MG/30 ML VIAL) ONE (08:00)
[2023-12-06] MEDS ORDERED: Promethazine HCl 25 MG/ML VIAL IM PRN (09:45)
[2023-12-06] MEDS ORDERED: traMADol HCl 50 MG TAB PO PRN ×2 (09:45)
[2023-12-06] MEDS ORDERED: Zolpidem Tartrate 5 MG TAB PO PRN (09:45)
[2023-12-06] MEDS ORDERED: Ondansetron PF 4 MG/2 ML Vial IVP PRN (09:45)
[2023-12-06] MEDS ORDERED: HYDROcodone/Acetaminophen 5/325 mg Tablet PO PRN ×2 (09:45)
[2023-12-06] MEDS ORDERED: Ropivacaine 0.2% 550 ML 550 ML NERVE BLCK SCH (09:45)
[2023-12-06] MEDS ORDERED: EPINEPHrine 1 MG/ML VIAL ONE (10:12)
[2023-12-06] MEDS ORDERED: Bupivacaine 0.25% HCL 30 ML VIAL ONE (10:12)
[2023-12-06] MEDS ORDERED: fentaNYL PF 100 MCG/2 ML SYRINGE ONE (10:22)
[2023-12-06] MEDS ORDERED: Sodium Chloride 0.9% 100 ML ONE (10:28)
[2023-12-06] MEDS ORDERED: CEFAZOLIN 2 GM VIAL ONE (10:28)
[2023-12-06] MEDS ORDERED: Ondansetron PF 4 MG/2 ML Vial ONE (11:30)
[2023-12-06] MEDS ORDERED: SUGAMMADEX SODIUM 200 MG/2 ML VIAL ONE (11:54)
[2023-12-06] MEDS ORDERED: Rocuronium Bromide 10 MG/ML (10ML VIAL) ONE (11:54)
[2023-12-06] MEDS ORDERED: Ketorolac Tromethamine 30 MG (1 mL) VIAL IVP SCH (12:00)
[2023-12-06] MEDS ORDERED: Lidocaine 1% PF 5 ML VIAL ONE (12:02)
[2023-12-06] MEDS ORDERED: Lidocaine 2% 6 ML (Jelly) SYR ONE (12:02)
[2023-12-06] MEDS ORDERED: PROPOFOL 20 ML ONE (12:03)
[2023-12-06] MEDS ORDERED: HYDROcodone/Acetaminophen 5/325 mg Tablet ONE (13:35)
== END 2023-12-06 15:00 | disposition home or self-care (01) ==
LOC: SDC 07:36
PROVIDERS: ATTEND Orthopaedic Surgery
PROC: 0RBK4ZZ Excision of Left Shoulder Joint, Percutaneous Endoscopic Approach (ICD-10-PCS; principal; 2023-12-06)
PROC: 0LS40ZZ Reposition Left Upper Arm Tendon, Open Approach (ICD-10-PCS; principal; 2023-12-06)
DX: S46.012A Strain of muscle(s) and tendon(s) of the rotator cuff of left shoulder, initial encounter (principal); S46.212A Strain of muscle, fascia and tendon of other parts of biceps, left arm, initial encounter; M25.312 Other instability, left shoulder; M75.52 Bursitis of left shoulder; E03.9 Hypothyroidism, unspecified; I73.9 Peripheral vascular disease, unspecified; Z90.710 Acquired absence of both cervix and uterus; Z90.49 Acquired absence of other specified parts of digestive tract; Z88.1 Allergy status to other antibiotic agents; Z88.8 Allergy status to other drugs, medicaments and biological substances; X58.XXXA Exposure to other specified factors, initial encounter
CPT/HCPCS: A4306; C1713; J0171; J0665; J2250; J2405; J2704; J2795; J3010; J3490

== ENCOUNTER 2023-12-14 08:14 | Outpatient (CLI) | payer BC | END 2023-12-14 08:15 | disposition home or self-care (01) | LOC: BICMAMMO 08:14 | PROVIDERS: ATTEND Family Medicine | DX: R92.8 Other abnormal and inconclusive findings on diagnostic imaging of breast (principal); N63.15 Unspecified lump in the right breast, overlapping quadrants | CPT/HCPCS: G0279 ==

== ENCOUNTER 2024-05-28 10:46 | Emergency (ER) | payer BC ==
[2024-05-28 13:11] LABS: #Basophils 0.03 10x3/uL (0.0-0.2); %Basophils 0.3 % (0.0-1.0); %Eosinophils 2.1 % (0.0-10.0); %Lymphocytes 25.7 % (21.0-51.0); %Monocytes 4.9 % (0.0-10.0); %Neutrophils 65.3 % (42.0-75.0); Hematocrit 33.6 % (36.0-47.0); Hemoglobin 11.1 g/dL (12.0-16.0); Mean Corpuscular Hemoglobin 27.4 pg (27.0-31.0); Mean Platelet Volume 9.8 fL (7.4-10.4); Platelet Count 185 10x3/uL (130-400); RBC Distribution Width 16.2 % (11.5-14.5); Red Blood Cell (RBC) Count 4.05 mill/uL (4.20-5.40)
[2024-05-28 13:33] LABS: ALT (SGPT) 15 U/L (8-55); AST (SGOT) 13 U/L (5-34); Albumin 3.3 g/dL (3.5-5.0); Alkaline Phosphatase 162 U/L (40-110); Anion Gap 15 mmol/L (10-20); BUN (Urea Nitrogen) 10 mg/dL (9.8-20.1); Bilirubin, Total 0.5 mg/dL (0.2-1.2); Calc. Creatinine Clearance 0 mL/min (70-130); Calcium 8.5 mg/dL (7.8-10.44); Carbon Dioxide 24 mmol/L (22-29); Chloride 106 mmol/L (98-107); Estimated GFR 102; Globulin 2.3 g/dL (2.4-3.5); Glucose 186 mg/dL (70-105); Potassium 3.8 mmol/L (3.5-5.1); Protein, Total 5.6 g/dL (6.0-8.3); Sodium 141 mmol/L (136-145)
[2024-05-28 13:36] LABS: Troponin I Less than 0.010 ng/mL (< 0.028)
== END 2024-05-28 14:34 | disposition home or self-care (01) ==
LOC: ERS 10:46
DX: M79.661 Pain in right lower leg (principal); K21.9 Gastro-esophageal reflux disease without esophagitis; E78.00 Pure hypercholesterolemia, unspecified; I10 Essential (primary) hypertension; Z79.82 Long term (current) use of aspirin; Z79.899 Other long term (current) drug therapy
CPT/HCPCS: 36415; 71045; 80053; 83880; 84484; 85025; 85379; 86141; 93005

== ENCOUNTER 2024-06-05 08:35 | Outpatient (CLI) | payer BC | END 2024-06-05 08:36 | disposition home or self-care (01) | LOC: BICMRI 08:35 | PROVIDERS: ATTEND Family Medicine | DX: M79.661 Pain in right lower leg (principal); R60.0 Localized edema ==

== ENCOUNTER 2024-07-11 12:43 | Outpatient (CLI) | payer BC | END 2024-07-11 12:44 | disposition home or self-care (01) | LOC: BICMAMMO 12:43 | PROVIDERS: ATTEND Family Medicine | DX: R92.8 Other abnormal and inconclusive findings on diagnostic imaging of breast (principal) | CPT/HCPCS: 77066; G0279 ==

== ENCOUNTER 2024-07-29 15:39 | Outpatient (CLI) | payer BC ==
[2024-07-29 16:37] LABS: #Basophils 0.06 10x3/uL (0.0-0.2); %Basophils 0.6 % (0.0-1.0); %Eosinophils 1.7 % (0.0-10.0); %Lymphocytes 34.6 % (21.0-51.0); %Monocytes 4.7 % (0.0-10.0); %Neutrophils 56.7 % (42.0-75.0); Hemoglobin 12.4 g/dL (12.0-16.0); Mean Corpuscular HGB CONC 33.5 g/dL (32.0-36.0); Mean Corpuscular Hemoglobin 26.8 pg (27.0-31.0); Mean Corpuscular Volume 79.9 fL (78.0-98.0); Mean Platelet Volume 9.8 fL (7.4-10.4); Platelet Count 184 10x3/uL (130-400); RBC Distribution Width 15.5 % (11.5-14.5); Red Blood Cell (RBC) Count 4.63 mill/uL (4.20-5.40)
[2024-07-29 17:03] LABS: Anion Gap 13 mmol/L (10-20); BUN (Urea Nitrogen) 10 mg/dL (9.8-20.1); Calc. Creatinine Clearance 0 mL/min (70-130); Calcium 9.2 mg/dL (7.8-10.44); Carbon Dioxide 23 mmol/L (22-29); Chloride 105 mmol/L (98-107); Estimated GFR 105; Glucose 97 mg/dL (70-105); Potassium 3.8 mmol/L (3.5-5.1); Sodium 137 mmol/L (136-145)
== END 2024-07-29 15:40 | disposition home or self-care (01) ==
LOC: LABBT 15:39
PROVIDERS: ATTEND Orthopaedic Surgery
DX: Z01.818 Encounter for other preprocedural examination (principal); G56.01 Carpal tunnel syndrome, right upper limb; G56.21 Lesion of ulnar nerve, right upper limb
CPT/HCPCS: 80048; 85025; 93005; 93010

== ENCOUNTER 2024-08-02 09:11 | Day surgery (SDC) | payer BC ==
[2024-07-29 15:54] VITALS: BMI 36.3
[2024-08-02] MEDS ORDERED: Lidocaine 1% (PF) 30 ML VIAL ONE (12:09)
[2024-08-02] MEDS ORDERED: PROPOFOL 20 ML ONE (12:33)
[2024-08-02] MEDS ORDERED: Lidocaine 1% PF 5 ML VIAL ONE (12:33)
[2024-08-02] MEDS ORDERED: fentaNYL 50 mcg/mL 1 mL Vial ONE ×3 (12:33→13:40)
[2024-08-02] MEDS ORDERED: Clindamycin/D5W 600 mg/50 ml Premix Bag ONE (12:35)
[2024-08-02] MEDS ORDERED: methylPREDNISolone Acetate 40 mg/ml Vial ONE (12:49)
[2024-08-02] MEDS ORDERED: Dexamethasone 4 mg/ml Vial ONE (13:07)
[2024-08-02] MEDS ORDERED: Ondansetron PF 4 MG/2 ML Vial ONE (13:07)
== END 2024-08-02 16:05 | disposition home or self-care (01) ==
LOC: SDC 09:11
PROVIDERS: ATTEND Orthopaedic Surgery
PROC: 0L970ZZ Drainage of Right Hand Tendon, Open Approach (ICD-10-PCS; principal; 2024-08-02)
PROC: 01N40ZZ Release Ulnar Nerve, Open Approach (ICD-10-PCS; principal; 2024-08-02)
PROC: 01N50ZZ Release Median Nerve, Open Approach (ICD-10-PCS; principal; 2024-08-02)
DX: G56.03 Carpal tunnel syndrome, bilateral upper limbs (principal); G56.21 Lesion of ulnar nerve, right upper limb; I10 Essential (primary) hypertension; I72.8 Aneurysm of other specified arteries; E78.5 Hyperlipidemia, unspecified; F32.A Depression, unspecified; F41.9 Anxiety disorder, unspecified; K58.9 Irritable bowel syndrome, unspecified; K21.9 Gastro-esophageal reflux disease without esophagitis; K76.0 Fatty (change of) liver, not elsewhere classified; G43.909 Migraine, unspecified, not intractable, without status migrainosus; M06.9 Rheumatoid arthritis, unspecified; Z87.59 Personal history of other complications of pregnancy, childbirth and the puerperium; Z90.710 Acquired absence of both cervix and uterus; Z90.49 Acquired absence of other specified parts of digestive tract; Z88.0 Allergy status to penicillin; Z88.8 Allergy status to other drugs, medicaments and biological substances; Z79.82 Long term (current) use of aspirin; Z79.51 Long term (current) use of inhaled steroids; Z79.899 Other long term (current) drug therapy
CPT/HCPCS: A6223; J1010; J1100; J2405; J2704; J3010; J3490